=== PATIENT | female | born 1985 | race Hispanic/Latino ===

== ENCOUNTER 2017-11-24 12:19 | Emergency (ER) | payer MEDICAID, SELFPAY ==
[~2017-11-24] VITALS: Ht 162.6 cm; Wt 68.0 kg
[~2017-11-24 12:19] MED LIST: VICODIN 5-5001 EACH PO
[2017-11-24 12:30] VITALS: BP_SYST 101; BP_SYST 105; BP_SYST 106; BP_SYST 109; BP_DIAS 69; BP_DIAS 73; BP_DIAS 79
[2017-11-24] MEDS ORDERED: METFORMIN HCL1000 M1 ORAL (12:41)
[2017-11-24] MEDS ORDERED: GLIPIZIDE5 MG ORAL (12:41)
[2017-11-24 13:03] LABS: BASOPHILS % (AUTO) 0.9 % (0.0-2.0); EOSINOPHILS % (AUTO) 1.1 % (0.0-3.0); HEMATOCRIT 37.2 % (37.0-47.0); HEMOGLOBIN 12.4 G/DL (12.0-16.0); LYMPHOCYTES % (AUTO) 29.3 % (20.0-45.0); MEAN CORPUSCULAR VOLUME 83 FL (80-99); MONOCYTES % (AUTO) 4.6 % (1.0-10.0); NEUTROPHILS % (AUTO) 64.1 % (45.0-75.0); PLATELET COUNT 264 K/UL (150-450); RED CELL DISTRIBUTION WIDTH 10.5 % (11.6-14.8)
[2017-11-24 13:14] LABS: ANION GAP 11 mmol/L (5-15); BLOOD UREA NITROGEN 13 mg/dL (7-18); CALCIUM 9.2 MG/DL (8.5-10.1); CARBON DIOXIDE 24 MMOL/L (21-32); CHLORIDE 103 MMOL/L (98-107); CREATININE 0.6 MG/DL (0.55-1.30); POTASSIUM 3.3 MMOL/L (3.5-5.1); SODIUM 138 MMOL/L (136-145)
[2017-11-24 13:19] LABS: ALANINE AMINOTRANSFERASE 9 U/L (12-78); ALBUMIN 3.4 G/DL (3.4-5.0); ALBUMIN/GLOBULIN RATIO 0.9 (1.0-2.7); ALKALINE PHOSPHATASE 74 U/L (46-116); ASPARTATE AMINO TRANSFERASE 13 U/L (15-37); BILIRUBIN,TOTAL 0.4 MG/DL (0.2-1.0); CREATINE KINASE 54 U/L (26-308)
[2017-11-24 14:11] LABS: APPEARANCE,URINE SLIGHTLY CLOUDY; BILIRUBIN, URINE NEGATIVE (NEGATIVE); COLOR,URINE PALE YELLOW; GLUCOSE, URINE (UA) NEGATIVE (NEGATIVE); KETONES,URINE NEGATIVE (NEGATIVE); LEUKOCYTE ESTERASE ,URINE 3+ (NEGATIVE); NITRITE,URINE NEGATIVE (NEGATIVE); PH,URINE 6.5 (4.5-8.0); PROTEIN,URINE 2+ (NEGATIVE); UROBILINOGEN,URINE NORMAL MG/DL (0.0-1.0)
--- NOTE | 2017-11-24 14:44 | Diagnostic Imaging Report ---
Indication: Shortness of breath Technique: One view of the chest Comparison: 02/17/2012 Findings: Lungs and pleural spaces are clear. Heart size is normal. No significant change Impression: No acute process
--- NOTE | 2017-11-24 14:53 | Emergency Room Report ---
History of Present Illness General Chief Complaint: Syncope Source: Patient, EMS Present Illness HPI Patient had syncope in her MDs office. No seizure activity. H/O diabetes and also 7 weeks . No vaginal bleeding or dysuria. Paramedics had glucose of 120 in field. She woke quickly, but still feels ill and weak. She did eat and also has been taking in oral fluids. No palpitations or chest pain at that time. No headache. She does have some mild suprapubic tenderness, which she rates 6/10. No meds taken. No ultrasound done. She is somewhat uncertain of her dates as periods are irregular. Started on diabetic meds in January. Now when she takes these (on full stomach ), she feels shaky and weak. This does pass. She was not given an accucheck machine and thinks her glucose is low at those times, however is not sure. She has some ear fullness. No sore throat. No fevers. No cough. No change in bowels. No rashes. 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 Last Menstrual Period: 10/06/17 Now: Yes : 2 Para: 1 Reviewed Nursing Documentation: PMH: Agreed; PSxH: Agreed Nursing Documentation-PMH Past Medical History: No History, Except For Hx Diabetes: Yes Physical Exam Vital Signs Date Time Temp Pulse Resp B/P (MAP) Pulse Ox O2 Delivery O2 Flow Rate FiO2 11/24/17 12:21 98.1 74 16 95/68 96 Room Air 98.1 Sp02 EP Interpretation: reviewed, normal General Appearance: well appearing, no apparent distress, GCS 15 Head: normocephalic Eyes: bilateral eye normal inspection, bilateral eye PERRL, bilateral eye EOMI ENT: normal pharynx, moist mucus membranes, other - R TM with fluid, L normal. No erythema Neck: supple Respiratory: lungs clear, normal breath sounds Cardiovascular #1: regular rate, rhythm Cardiovascular #2: 2+ radial (R) Gastrointestinal: normal inspection, normal bowel sounds, no mass, non- distended, tenderness - min suprapubic Genitourinary: no CVA tenderness Musculoskeletal: back normal, gait/station normal, normal range of motion Neurologic: alert, oriented x3, it applications analyst III-XII nml as tested, motor strength/tone normal, DTRs symmetric, sensory intact, cerebellar normal, speech normal Psychiatric: mood/affect normal Skin: normal inspection, warm/dry Medical Decision Making Diagnostic Impression: Primary Impression: Syncope Qualified Codes: R55 - Syncope and collapse Additional Impressions: Early stage of UTI (urinary tract infection) Qualified Codes: N30.00 - Acute cystitis without hematuria Diabetes Qualified Codes: E11.9 - Type 2 diabetes mellitus without complications Serous otitis media Qualified Codes: H65.91 - Unspecified nonsuppurative otitis media, right ear ER Course patient with diabetes presents with syncope. DDx: vasovagal, volume depletion, ectopic,. related syncope, PE amongst others. Field glucose precludes hypoglycemia. Evaluation with EKG, CXR, ultrasound, labs. Treatment with IV hydration and cardiac observation. EKG without injury. CXR clear. Labs with normal WBC, H/H. CMP with mild elevation of glucose and min decreased K. Pyuria present. HCG slightly low for 7 weeks, but patient not completely certain of LNMP. Patient much improved with fluid bolus. Ambulatory and not feeling weak anymore. Macrobid begun for pyuria. As exam has improved and no abdominal pain (and delay of ultrasound), U/S cancelled. Advised that if pain returns, to return to ED. Given Rx for accucheck machine and given direction how to use. No indication for Rhogam as no evidence of bleeding. Advised to follow up with her MD soon. Given labs. Patient stable for outpatient observation and treatment. Laboratory Tests Test 11/24/17 12:35 11/24/17 13:35 White Blood Count 10.0 K/UL (4.8-10.8) Red Blood Count 4.50 M/UL (4.20-5.40) Hemoglobin 12.4 G/DL (12.0-16.0) Hematocrit 37.2 % (37.0-47.0) Mean Corpuscular Volume 83 FL (80-99) Mean Corpuscular Hemoglobin 27.6 PG (27.0-31.0) Mean Corpuscular Hemoglobin Concent 33.4 G/DL (32.0-36.0) Red Cell Distribution Width 10.5 % (11.6-14.8) L Platelet Count 264 K/UL (150-450) Mean Platelet Volume 6.3 FL (6.5-10.1) L Neutrophils (%) (Auto) 64.1 % (45.0-75.0) Lymphocytes (%) (Auto) 29.3 % (20.0-45.0) Monocytes (%) (Auto) 4.6 % (1.0-10.0) Eosinophils (%) (Auto) 1.1 % (0.0-3.0) Basophils (%) (Auto) 0.9 % (0.0-2.0) Prothrombin Time 10.8 SEC (9.30-11.50) Prothrombin Time INR 1.0 (0.9-1.1) PTT 25 SEC (23-33) Sodium Level 138 MMOL/L (136-145) Potassium Level 3.3 MMOL/L (3.5-5.1) L Chloride Level 103 MMOL/L (98-107) Carbon Dioxide Level 24 MMOL/L (21-32) Anion Gap 11 mmol/L (5-15) Blood Urea Nitrogen 13 mg/dL (7-18) Creatinine 0.6 MG/DL (0.55-1.30) Estimate Glomerular Filtration Rate > 60 mL/min (>60) Glucose Level 129 MG/DL (74-106) H Calcium Level 9.2 MG/DL (8.5-10.1) Total Bilirubin 0.4 MG/DL (0.2-1.0) Aspartate Amino Transferase (AST) 13 U/L (15-37) L Alanine Aminotransferase (ALT) 9 U/L (12-78) L Alkaline Phosphatase 74 U/L (46-116) Total Creatine Kinase 54 U/L (26-308) Troponin I 0.017 ng/mL (0.000-0.056) Total Protein 7.3 G/DL (6.4-8.2) Albumin 3.4 G/DL (3.4-5.0) Globulin 3.9 g/dL Albumin/Globulin Ratio 0.9 (1.0-2.7) L Human Chorionic Gonadotropin, Quant 23084 mIU/mL (1-6) H Urine Color Pale yellow Urine Appearance Slightly cloudy Urine pH 6.5 (4.5-8.0) Urine Specific [place] 1.015 (1.005-1.035) Urine Protein 2+ (NEGATIVE) H Urine Glucose (UA) Negative (NEGATIVE) Urine Ketones Negative (NEGATIVE) Urine Blood Negative (NEGATIVE) Urine Nitrite Negative (NEGATIVE) Urine Bilirubin Negative (NEGATIVE) Urine Urobilinogen Normal MG/DL (0.0-1.0) Urine Leukocyte Esterase 3+ (NEGATIVE) H Urine RBC 0-2 /HPF (0 - 2) Urine WBC 20-30 /HPF (0 - 2) H Urine Squamous Epithelial Cells Many /LPF (NONE/OCC) H Urine Bacteria Few /HPF (NONE) EKG Diagnostic Results Rate: normal Rhythm: NSR ST Segments: no acute changes Rhythm Strip Diag. Results EP Interpretation: yes Rhythm: NSR, no PVC's, no ectopy Chest X-Ray Diagnostic Results Chest X-Ray Diagnostic Results : Chest X-Ray Ordered: Yes - shield abd # of Views/Limited/Complete: 1 View Indication: Other EP Interpretation: Yes Interpretation: no consolidation, no effusion, no pneumothorax Impression: No acute disease Electronically Signed by: Qamar Guardado MD Last Vital Signs Date Time Temp Pulse Resp B/P (MAP) Pulse Ox O2 Delivery O2 Flow Rate FiO2 11/24/17 15:18 98.3 70 16 111/78 100 Room Air 98.0 Status: improved Disposition: HOME, SELF-CARE Condition: Improved Scripts Acetaminophen (Tylenol) 325 Mg Tablet 650 MG ORAL Q6H PRN for Prn Pain/Headache/Temp > 101, #20 TAB 0 Refills Prov: Qamar Guardado M.D. 11/24/17 Pseudoephedrine Hcl* (SUDAFED*) 30 Mg Tablet 30 MG PO Q6H PRN for ear pain and congestion, #20 TAB Prov: Qamar Guardado M.D. 11/24/17 Nitrofurantoin Monohyd/M-Cryst* (MACROBID 100 MG*) 100 Mg Capsule 100 MG ORAL EVERY 12 HOURS, #14 CAP Prov: Qamar Guardado M.D. 11/24/17 Blood-Glucose Meter, Drum-Type (ACCU-CHEK) 1 Each Kit EACH MC NEEDED for diabetes, #1 Prov: Qamar Guardado M.D. 11/24/17 Referrals: NON PHYSICIAN (PCP) Qamar Guardado M.D. Nov 24, 2017 14:53
[2017-11-24] MEDS ORDERED: NITROFURANTOIN100 M2 ORAL (15:02)
[2017-11-24] MEDS ORDERED: TYLENOL325 MG ORAL (15:02)
[2017-11-24] MEDS ORDERED: ACCU-CHEK1 EAC5 MC (15:02)
[2017-11-24] MEDS ORDERED: PSEUDOEPHEDRINE30 MG PO (15:02)
[2017-11-24 15:18] VITALS: BP 111/78
--- NOTE | 2017-11-25 16:57 | Cardiology Report ---
APPROVED REPORT EKG Measurement Heart [id number] Normal sinus rhythm Normal ECG
== END 2017-11-24 15:21 | disposition home or self-care (01) ==
LOC: EDUNIT# 12:19 → EDBD 12:19 → EMR 12:45
DX: O23.41 Unspecified infection of urinary tract in pregnancy, first trimester (principal); O24.111 Pre-existing type 2 diabetes mellitus, in pregnancy, first trimester; E11.9 Type 2 diabetes mellitus without complications; Z3A.01 Less than 8 weeks gestation of pregnancy
CPT/HCPCS: 36415; 71045; 80053; 81003; 82550; 84484; 84702; 85025; 85610; 85730; 86850; 86900; 86901; 87086; 93005; 96360; 99284